=== PATIENT | female | born 1990 | race Two or more races ===

== ENCOUNTER 2016-10-23 11:56 | Emergency (ER) | payer OTHER ==
[2016-10-23 13:10] LABS: HCG,QUALITATIVE URINE NEGATIVE
[2016-10-23 13:11] LABS: SPECIFIC GRAVITY 1.025 (1.001-1.030); URINE BILIRUBIN NEGATIVE (NEGATIVE); URINE BLOOD 4+ (NEGATIVE); URINE GLUCOSE (UA) NEGATIVE (NEGATIVE); URINE LEUKOCYTE ESTERASE TRACE (NEGATIVE); URINE NITRITE NEGATIVE (NEGATIVE); URINE PROTEIN 2+ (NEGATIVE); URINE UROBILINOGEN 1 mg/dL (0-1 mg/dl)
[2016-10-23 13:14] LABS: URINE APPEARANCE HAZY; URINE COLOR AMBER
[2016-10-23 13:24] LABS: URINE BACTERIA 1+; URINE RBC 40-50 /hpf
[2016-10-23 13:25] LABS: URINE MUCUS 2+
== END 2016-10-23 14:18 | disposition home or self-care (01) ==
LOC: ED 11:56
DX: R10.9 Unspecified abdominal pain (principal); R31.9 Hematuria, unspecified; Z87.442 Personal history of urinary calculi